=== PATIENT | female | born 1945 | race Caucasian/White ===

== ENCOUNTER 2019-12-12 14:14 | Emergency (ER) | payer BC ==
[~2019-12-12] VITALS: Ht 152.4 cm; Wt 76.2 kg
--- NOTE | 2019-12-12 14:20 | NUR ---
PATIENT TO ER #2
[2019-12-12 14:25] VITALS: BP_SYST 140
[2019-12-12] MEDS ORDERED: HYDR25TA4 PO (14:25)
[2019-12-12] MEDS ORDERED: SIMV20TA6 PO (14:25)
[2019-12-12] MEDS ORDERED: ATEN-166 PO (14:25)
--- NOTE | 2019-12-12 14:25 | NUR ---
PT CAME TO ER AFTER FALL. SHE COMPLAINED OF NECK AND SHOULDER PAIN 5/10 AFTER ROLLING DOWN A HILL. PT IS RESTING IN [facility], AO4, NO S/S OF DISTRESS AT THIS TIME.
--- NOTE | 2019-12-12 14:30 | NUR ---
ER at bedside examining patient.
[2019-12-12] MEDS ORDERED: KETOROLAC TROMETHAMINE 60 MG/2 ML VIAL IM ONE (15:00)
--- NOTE | 2019-12-12 15:30 | NUR ---
PT RESTING IN BED AT THIS TIME REPORTS PAIN LEVEL REDUCTION.
[2019-12-12 16:20] VITALS: BP_SYST 140
--- NOTE | 2019-12-12 16:20 | NUR ---
Patient given written and verbal discharge instructions and verbalizes understanding. ER MD discussed with patient the results and treatment provided. Patient in stable condition. ID arm band removed. Rx of TRAMADOL given. Patient educated on pain management and to follow up with PMD. Pain Scale 0/10. Opportunity for questions provided and answered. Medication side effect fact sheet provided.
== END 2019-12-12 16:20 | disposition home or self-care (01) ==
LOC: SED 14:14
DX: S16.1XXA Strain of muscle, fascia and tendon at neck level, initial encounter (principal); S93.402A Sprain of unspecified ligament of left ankle, initial encounter; I10 Essential (primary) hypertension; Z79.899 Other long term (current) drug therapy; W18.39XA Other fall on same level, initial encounter; Y93.89 Activity, other specified; Y92.89 Other specified places as the place of occurrence of the external cause; Y99.8 Other external cause status
CPT/HCPCS: 72125; 72192; 73030; 73610; 96372; 99285; J1885